=== PATIENT | male | born 1970 | race Caucasian/White ===

== ENCOUNTER 2022-07-05 18:32 | Inpatient (IN) ==
[2022-07-05] MEDS ORDERED: Iopamidol - 370 500 ML MLS IVP ONE (19:02)
[2022-07-05] MEDS ORDERED: 0.9 % Sodium Chloride 1,000 ML IVC ONE (19:02)
[2022-07-05] MEDS ORDERED: Ondansetron 4 MG/2 ML VIAL IVP ONE (19:02)
[2022-07-05 19:40] LABS: Basophils # 0.1 K/mcL (0.0-0.2); Basophils % 0.2 %; Hematocrit 53.4 % (37.5-50.1); Hemoglobin 17.3 g/dL (12.9-16.9); Immature Granulocytes % 0.8 % (0-4); Lymphocytes # 1.5 K/mcL (0.6-4.6); Lymphocytes % 5.5 %; Mean Corpuscular HGB Conc 32.4 g/dL (31.6-35.5); Mean Corpuscular Hemoglobin 27.8 pg (28.0-33.3); Mean Corpuscular Volume 85.9 fL (83.0-100.0); Mean Platelet Volume 12.4 fL (9.4-12.4); Monocytes # 1.5 K/mcL (0.0-1.3); Monocytes % 5.4 %; Neutrophils # 23.9 K/mcL (1.6-8.9); Platelet Count 322 K/mcL (140-400); Red Blood Count 6.22 M/mcL (4.19-5.50); Red Cell Distribution Width 14.7 % (11.5-14.5); Segmented Neutrophils % 88.1 %; White Blood Count 27.1 K/mcL (4.3-11.1)
[2022-07-05 20:04] LABS: Albumin 4.1 g/dL (3.5-5.7); Albumin/Globulin Ratio 1.2 (1.1-2.2); Bilirubin,Direct 0.2 mg/dL (0.0-0.2); Bilirubin,Indirect 0.6 mg/dL (0.0-1.0); Bilirubin,Total 0.8 mg/dL (0.3-1.0); Globulin 3.4 g/dL (2.4-3.5); Total Protein 7.5 g/dL (6.4-8.9); Troponin I 0.03 ng/mL (< 0.04)
[2022-07-05] MEDS ORDERED: cefTRIAXone 1,000 MG in 0.9 % Sodium Chloride 10 ML IVP ONE (20:10)
[2022-07-05 20:17] LABS: Adenovirus Not Detected (Not Detect); Bordetella Pertussis Not Detected (Not Detect); Chlamydophila pneumoniae Not Detected (Not Detect); Coronavirus 229E Not Detected (Not Detect); Coronavirus HKU1 Not Detected (Not Detect); Coronavirus NL63 Not Detected (Not Detect); Coronavirus OC43 Not Detected (Not Detect); Human Metapneumovirus Not Detected (Not Detect); Human Rhinovirus/Enterovirus Not Detected (Not Detect); Influenza A Subtype 2009 H1 Not Detected (Not Detect); Influenza B Not Detected (Not Detect); Mycoplasma pneumoniae Not Detected (Not Detect); Parainfluenza Virus 1 Not Detected (Not Detect); Parainfluenza Virus 2 Not Detected (Not Detect); Parainfluenza Virus 3 Not Detected (Not Detect); Parainfluenza Virus 4 Not Detected (Not Detect); Respiratory Syncytial Virus Not Detected (Not Detect); SARS-CoV-2 Not Detected (Not Detect)
[2022-07-05 20:47] LABS: Beta-Hydroxybutyric Acid > 2.00 mmol/L (0.02-0.27)
[2022-07-05 20:53] LABS: VBG HCO3 20 mEq/L (21-27); VBG PCO2 39 mmHg (41-51); VBG PH 7.33 pH Units (7.32-7.42); VBG PO2 82 mmHg (25-50)
[2022-07-05 21:42] LABS: Bilirubin,Urine Negative (Negative); Blood,Urine Negative (Negative); Clarity,Urine Clear (Clear); Color,Urine Light-Yellow (Yellow); Glucose,Urine (UA) >=1000 mg/dL (Normal); Ketones,Urine Trace mg/dL (Negative); Leukocyte Esterase,Urine Negative (Negative); Mucus,Urine Few per lpf (None-Few); Nitrite,Urine Negative (Negative); PH,Urine 5.5 pH Units (5.0-8.0); Protein,Urine Negative (Neg-Trace); Specific Gravity,Urine 1.021 (1.010-1.025); Squamous Epithelial Cell,Urine Few per hpf (None-Few); Urobilinogen,Urine Normal (Normal); WBC,Urine 0-3 per hpf (0-3)
[2022-07-05] MEDS ORDERED: *HR* Dextrose 50 % in Water (Syg) 50 ML SYRINGE IVP PRN (22:11)
[2022-07-05] MEDS ORDERED: D5% in 0.45% NACL 1,000 ML IVC PRN (22:11)
[2022-07-05] MEDS ORDERED: Ondansetron 4 MG/2 ML VIAL IVP PRN (22:19)
[2022-07-05 23:02] LABS: Procalcitonin 0.72 ng/mL (0.00-0.15)
[2022-07-05 23:49] LABS: Calcium 9.3 mg/dL (8.6-10.3); Potassium 4.8 mEq/L (3.5-5.1)
[2022-07-05] MEDS: 0.9 % Sodium Chloride 1,000 ML IVC SCH (23:50)
[2022-07-06 00:40] LABS: Chloride,Urine < 15 mEq/L; Potassium,Urine 33.4 mEq/L; Sodium, Urine 16.1 mEq/L
[2022-07-06] MEDS: 0.9 % Sodium Chloride 1,000 ML IVC SCH ×5 (01:42→16:19)
[2022-07-06 02:06] LABS: Chol/HDL Ratio 3.3 (0-4.9)
[2022-07-06 02:20] LABS: Thyroid Stimulating Hormone 1.485 mcIU/mL (0.340-5.600)
[2022-07-06 03:31] LABS: Estimated Average Glucose 447 mg/dl; Hemoglobin A1C 17.2 %
[2022-07-06 04:58] LABS: Calcium 8.6 mg/dL (8.6-10.3); Potassium 4.2 mEq/L (3.5-5.1)
[2022-07-06] MEDS ORDERED: D5% in 0.45% NACL 1,000 ML IVC PRN (04:59)
[2022-07-06] MEDS ORDERED: Ipratropium/Albuterol Neb 3 ML IH PRN (05:44)
[2022-07-06] MEDS ORDERED: 0.45 % Sodium Chloride w/KCl 20 MEQ/1,000 ML MLS IVC SCH (05:45)
[2022-07-06] MEDS: Piperacillin/Tazobactam 3.375 GM in 0.9 % Sodium Chloride Mini Bag 100 ML IVPB SCH ×3 (05:49→22:33)
[2022-07-06] MEDS: Ipratropium/Albuterol Neb 3 ML IH SCH ×5 (07:45→22:57)
[2022-07-06 08:02] LABS: VBG HCO3 24 mEq/L (21-27); VBG PCO2 39 mmHg (41-51); VBG PO2 145 mmHg (25-50)
[2022-07-06 08:19] LABS: Calcium 8.6 mg/dL (8.6-10.3); Potassium 3.9 mEq/L (3.5-5.1)
[2022-07-06] MEDS: D5% in 0.45% NACL w KCl 20 MEQ/1,000 ML MLS IVC PRN ×2 (09:09→13:35)
[2022-07-06 12:47] LABS: Basophils % 0.1 %; Eosinophils # 0.1 K/mcL (0.0-0.6); Eosinophils % 0.4 %; Hematocrit 46.3 % (37.5-50.1); Immature Granulocytes % 0.9 % (0-4); Lymphocytes % 9.5 %; Mean Corpuscular HGB Conc 33.5 g/dL (31.6-35.5); Mean Corpuscular Hemoglobin 27.9 pg (28.0-33.3); Mean Corpuscular Volume 83.3 fL (83.0-100.0); Mean Platelet Volume 12.2 fL (9.4-12.4); Monocytes # 1.5 K/mcL (0.0-1.3); Monocytes % 6.9 %; Neutrophils # 17.2 K/mcL (1.6-8.9); Platelet Count 214 K/mcL (140-400); Red Blood Count 5.56 M/mcL (4.19-5.50); Red Cell Distribution Width 14.2 % (11.5-14.5); Segmented Neutrophils % 82.2 %
[2022-07-06 12:52] LABS: VBG HCO3 20 mEq/L (21-27); VBG PCO2 28 mmHg (41-51); VBG PH 7.46 pH Units (7.32-7.42); VBG PO2 228 mmHg (25-50)
[2022-07-06 12:52] LABS: Hemoglobin 15.5 g/dL (12.9-16.9)
[2022-07-06 13:08] LABS: Calcium 8.3 mg/dL (8.6-10.3); Potassium 4.2 mEq/L (3.5-5.1)
[2022-07-06] MEDS ORDERED: Dextrose Gel 15 GM/37.5 ML TUBE PO PRN ×2 (13:33)
[2022-07-06] MEDS ORDERED: *HR* Dextrose 50 % in Water (Syg) 50 ML SYRINGE IVP PRN (13:33)
[2022-07-06] MEDS ORDERED: D5% in Water 1,000 ML IVC PRN (13:33)
[2022-07-06] MEDS ORDERED: Insulin DETEMIR 100 UNIT/ML X5UNITS SUBQ ONE ×2 (13:33→22:00)
[2022-07-06] MEDS: *HR* OxyCODONE Immed Rel 5 MG TABLET PO PRN ×2 (14:01→20:12)
[2022-07-06] MEDS: Insulin LISPRO 300 UNITS/3 ML VIAL SUBQ SCH (16:21)
[2022-07-06] MEDS ORDERED: Insulin LISPRO 300 UNITS/3 ML VIAL SUBQ SCH ×3 (16:30→21:00)
[2022-07-06 16:38] LABS: Calcium 8.5 mg/dL (8.6-10.3); Potassium 4.9 mEq/L (3.5-5.1)
[2022-07-06] MEDS: Acetaminophen 325 MG TABLET PO PRN (17:19)
[2022-07-06] MEDS: Loratadine 10 MG TABLET PO SCH (20:12)
[2022-07-06 20:59] LABS: Calcium 8.3 mg/dL (8.6-10.3); Potassium 4.9 mEq/L (3.5-5.1)
[2022-07-06] MEDS: RIVAROXABAN 2.5 MG PO SCH (21:35)
[2022-07-06] MEDS ORDERED: *HR* Rivaroxaban 10 MG TABLET PO ONE (21:45)
[2022-07-07 01:47] LABS: Basophils % 0.2 %; Eosinophils % 0.2 %; Hematocrit 47.1 % (37.5-50.1); Hemoglobin 15.5 g/dL (12.9-16.9); Immature Granulocytes % 0.6 % (0-4); Lymphocytes # 1.8 K/mcL (0.6-4.6); Lymphocytes % 10.7 %; Mean Corpuscular HGB Conc 32.9 g/dL (31.6-35.5); Mean Corpuscular Hemoglobin 27.6 pg (28.0-33.3); Mean Platelet Volume 12.3 fL (9.4-12.4); Monocytes # 1.2 K/mcL (0.0-1.3); Monocytes % 6.9 %; Neutrophils # 13.9 K/mcL (1.6-8.9); Platelet Count 198 K/mcL (140-400); Red Blood Count 5.61 M/mcL (4.19-5.50); Red Cell Distribution Width 14.6 % (11.5-14.5); Segmented Neutrophils % 81.4 %; White Blood Count 17.1 K/mcL (4.3-11.1)
[2022-07-07 02:07] LABS: Calcium 8.6 mg/dL (8.6-10.3); Potassium 4.5 mEq/L (3.5-5.1)
[2022-07-07] MEDS ORDERED: Insulin Human Regular 10 UNIT in 0.9 % Sodium Chloride 10 ML IV ONE (02:45)
[2022-07-07 03:12] LABS: Calcium 8.6 mg/dL (8.6-10.3); Magnesium 2.4 mg/dL (1.6-2.6); Potassium 4.4 mEq/L (3.5-5.1)
[2022-07-07] MEDS: 0.9 % Sodium Chloride 1,000 ML IVC SCH (04:17)
[2022-07-07] MEDS: Ipratropium/Albuterol Neb 3 ML IH SCH ×6 (04:19→21:36)
[2022-07-07] MEDS: Piperacillin/Tazobactam 3.375 GM in 0.9 % Sodium Chloride Mini Bag 100 ML IVPB SCH ×3 (06:24→20:13)
[2022-07-07] MEDS: Aspirin Enteric Coated 81 MG Tablet PO SCH (07:59)
[2022-07-07] MEDS: Insulin LISPRO 300 UNITS/3 ML VIAL SUBQ SCH ×4 (08:09→20:17)
[2022-07-07] MEDS: BuPROPion XL (24 HR) 150 MG TABLET PO SCH (08:11)
[2022-07-07] MEDS ORDERED: Insulin DETEMIR 100 UNIT/ML X5UNITS SUBQ SCH ×2 (09:00→10:45)
[2022-07-07] MEDS: RIVAROXABAN 2.5 MG PO SCH ×2 (11:22→20:18)
[2022-07-07] MEDS ORDERED: Insulin Human Regular 10 UNIT in 0.9 % Sodium Chloride 10 ML IV STA (13:02)
[2022-07-07 14:11] LABS: Calcium 8.8 mg/dL (8.6-10.3); Potassium 4.4 mEq/L (3.5-5.1)
[2022-07-07] MEDS ORDERED: *HR* Rivaroxaban 10 MG TABLET PO ONE (17:00)
[2022-07-07 18:40] LABS: Potassium 4.7 mEq/L (3.5-5.1)
[2022-07-07] MEDS: Loratadine 10 MG TABLET PO SCH (20:14)
[2022-07-07] MEDS: Insulin DETEMIR 100 UNIT/ML X5UNITS SUBQ SCH (20:16)
[2022-07-07] MEDS ORDERED: Insulin DETEMIR 100 UNIT/ML X5UNITS SUBQ ONE (21:00)
[2022-07-08] MEDS: *HR* OxyCODONE Immed Rel 5 MG TABLET PO PRN ×4 (00:39→20:06)
[2022-07-08 04:53] LABS: Basophils # 0.1 K/mcL (0.0-0.2); Basophils % 0.4 %; Eosinophils # 0.1 K/mcL (0.0-0.6); Eosinophils % 0.7 %; Hematocrit 45.9 % (37.5-50.1); Hemoglobin 14.9 g/dL (12.9-16.9); Immature Granulocytes % 0.8 % (0-4); Lymphocytes # 2.4 K/mcL (0.6-4.6); Lymphocytes % 16.2 %; Mean Corpuscular HGB Conc 32.5 g/dL (31.6-35.5); Mean Corpuscular Hemoglobin 27.6 pg (28.0-33.3); Mean Platelet Volume 11.9 fL (9.4-12.4); Monocytes # 0.9 K/mcL (0.0-1.3); Monocytes % 6.3 %; Neutrophils # 11.3 K/mcL (1.6-8.9); Platelet Count 165 K/mcL (140-400); Red Cell Distribution Width 14.6 % (11.5-14.5); Segmented Neutrophils % 75.6 %
[2022-07-08 05:07] LABS: Calcium 8.6 mg/dL (8.6-10.3); Potassium 4.2 mEq/L (3.5-5.1)
[2022-07-08 05:09] LABS: Calcium 8.7 mg/dL (8.6-10.3); Magnesium 2.2 mg/dL (1.6-2.6); Phosphorous 3.1 mg/dL (2.7-4.5); Potassium 4.2 mEq/L (3.5-5.1)
[2022-07-08] MEDS ORDERED: *HR* Rivaroxaban 10 MG TABLET PO SCH (06:00)
[2022-07-08] MEDS: Piperacillin/Tazobactam 3.375 GM in 0.9 % Sodium Chloride Mini Bag 100 ML IVPB SCH (06:30)
[2022-07-08] MEDS: Ipratropium/Albuterol Neb 3 ML IH SCH ×5 (07:28→23:30)
[2022-07-08] MEDS: Insulin LISPRO 300 UNITS/3 ML VIAL SUBQ SCH ×4 (07:58→20:06)
[2022-07-08] MEDS: BuPROPion XL (24 HR) 150 MG TABLET PO SCH (07:58)
[2022-07-08] MEDS: Aspirin Enteric Coated 81 MG Tablet PO SCH (07:58)
[2022-07-08] MEDS: RIVAROXABAN 2.5 MG PO SCH ×2 (07:59→20:08)
[2022-07-08] MEDS: Insulin DETEMIR 100 UNIT/ML X5UNITS SUBQ SCH (08:00)
[2022-07-08] MEDS ORDERED: Insulin DETEMIR 100 UNIT/ML X5UNITS SUBQ SCH ×2 (09:00→21:00)
[2022-07-08] MEDS ORDERED: Insulin DETEMIR 100 UNIT/ML X5UNITS SUBQ ONE (10:06)
[2022-07-08] MEDS: lisinopriL 10 MG TABLET PO SCH (11:41)
[2022-07-08] MEDS: amLODIPine 5 MG TABLET PO SCH (16:00)
[2022-07-08 16:21] LABS: Calcium 8.8 mg/dL (8.6-10.3); Potassium 4.1 mEq/L (3.5-5.1)
[2022-07-08] MEDS: Amoxicillin/Clavulanate 500 MG TABLET PO SCH (16:30)
[2022-07-08] MEDS: Loratadine 10 MG TABLET PO SCH (20:05)
[2022-07-08] MEDS ORDERED: Insulin LISPRO 300 UNITS/3 ML VIAL SUBQ ONE (22:30)
[2022-07-09] MEDS ORDERED: Insulin LISPRO 300 UNITS/3 ML VIAL SUBQ ONE (00:10)
[2022-07-09] MEDS ORDERED: Insulin LISPRO 300 UNITS/3 ML VIAL SUBQ SCH ×2 (00:15→07:30)
[2022-07-09] MEDS: *HR* OxyCODONE Immed Rel 5 MG TABLET PO PRN ×2 (00:47→04:40)
[2022-07-09] MEDS: Acetaminophen 325 MG TABLET PO PRN (01:54)
[2022-07-09] MEDS: Ipratropium/Albuterol Neb 3 ML IH SCH ×3 (04:21→10:50)
[2022-07-09 08:18] VITALS: BP 118/80; PULSE 98; TEMP 98.1; O2SAT 95
[2022-07-09] MEDS ORDERED: Insulin DETEMIR 100 UNIT/ML X5UNITS SUBQ SCH (09:00)
[2022-07-09] MEDS: Amoxicillin/Clavulanate 500 MG TABLET PO SCH (11:18)
[2022-07-09] MEDS: Aspirin Enteric Coated 81 MG Tablet PO SCH (11:18)
[2022-07-09] MEDS: amLODIPine 5 MG TABLET PO SCH (11:19)
[2022-07-09] MEDS: RIVAROXABAN 2.5 MG PO SCH (11:19)
[2022-07-09] MEDS: lisinopriL 10 MG TABLET PO SCH (11:19)
[2022-07-09] MEDS: BuPROPion XL (24 HR) 150 MG TABLET PO SCH (11:19)
== END 2022-07-09 13:38 | disposition home or self-care (01) | DRG 420 ==
LOC: 2NNU 18:32 → EMEROOARM 18:32 → SUATTDRO 22:13 → OBSVTOIN 22:13 → 2NNU 23:03 → 2NENU 07-08 20:45
PROVIDERS: ADMIT Internal Medicine; ATTEND Internal Medicine